=== PATIENT | male | born 2000 | race Hispanic/Latino ===

== ENCOUNTER 2023-01-31 03:09 | Inpatient (IN) | payer MEDICAID, OTHER ==
[~2023-01-31] VITALS: Ht 162.6 cm; Wt 65.7 kg
[2023-01-31 04:43] LABS: BASOPHILS # (AUTO) 0.04 K/uL (0.00-0.20); BASOPHILS % (AUTO) 0.4 % (0.0-5.0); EOSINOPHILS # (AUTO) 0.31 K/uL (0.00-0.70); EOSINOPHILS % (AUTO) 2.8 % (0.0-8.0); HEMATOCRIT 43.4 % (42-54); IMMATURE GRANULOCYTE ABSOLUTE 0.04 K/uL (0-1); LYMPHOCYTES # (AUTO) 2.8 K/uL (1.0-4.8); LYMPHOCYTES % (AUTO) 24.7 % (21.0-51.0); MEAN CORPUSCULAR HEMOGLOBIN 30.1 pg (27.0-33.0); MEAN CORPUSCULAR HGB CONC 33.2 g/dL (32.0-36.0); MEAN CORPUSCULAR VOLUME 90.6 fL (79-99); MONOCYTES # (AUTO) 1.1 K/uL (0.1-1.0); MONOCYTES % (AUTO) 9.4 % (3.0-13.0); NEUTROPHILS % (AUTO) 62.3 % (40.0-77.0); PLATELET COUNT (AUTO) 260 K/uL (130-400); RED BLOOD CELL COUNT(AUTO) 4.79 MIL/uL (4.50-6.20); RED CELL DISTRIBUTION WIDTH 12.6 % (11.0-15.5); WHITE BLOOD COUNT (AUTO) 11.3 K/uL (4.8-10.8)
[2023-01-31 04:44] LABS: APPEARANCE,URINE CLEAR (CLEAR); BILIRUBIN,URINE NEGATIVE (NEGATIVE); COLOR,URINE LIGHT-YELLOW (YELLOW); GLUCOSE, URINE (UA) NEGATIVE (NEGATIVE); KETONES,URINE NEGATIVE (NEGATIVE); LEUKOCYTE ESTERASE ,URINE NEGATIVE Leu/uL (NEGATIVE); NITRATE,URINE NEGATIVE (NEGATIVE); OCCULT BLOOD,URINE NEGATIVE (NEGATIVE); PROTEIN,URINE NEGATIVE (NEGATIVE); UROBILINOGEN,URINE 0.2 mg/dL (0.2-1.0)
[2023-01-31 04:48] LABS: ADD UA MICROSCOPIC NO
[2023-01-31 05:00] LABS: INR < 0.93 (0.85-1.15); PROTHROMBIN TIME 9.9 SEC (9.6-11.6)
[2023-01-31] MEDS ORDERED: TETANUS/DIPHTHERIA TOXOID [ADULT] 0.5 ML VIAL IM ONE (05:00)
[2023-01-31] MEDS ORDERED: ZOSYN 3.375GM +NS 50ML IV ONE (05:00)
[2023-01-31] MEDS ORDERED: DIPH,PERTUSS(ACELL),TET VAC/PF 0.5 ML VIAL IM ONE (05:00)
[2023-01-31] MEDS ORDERED: MORPHINE 2 MG SYG IVP ONE (05:00)
[2023-01-31] MEDS ORDERED: VANCOMYCIN KIT 1 GM/250 ML IV.KIT IV ONE (05:00)
[2023-01-31 05:05] LABS: CREATININE 1.1 mg/dL (0.5-1.5); POTASSIUM 3.7 mmol/L (3.5-5.1)
[2023-01-31 05:07] LABS: ALBUMIN 3.6 g/dL (3.5-5.0); BILIRUBIN,TOTAL 0.1 mg/dL (0.2-1.0); TOTAL PROTEIN, SERUM 7.6 g/dL (6.0-8.3)
[2023-01-31] MEDS ORDERED: IOHEXOL-350 75 ML VIAL IV ONE (05:27)
[2023-01-31] MEDS: 0.9%NACL 1000ML 1,000 ML IV SCH ×2 (08:13→12:13)
[2023-01-31] MEDS ORDERED: MORPHINE 2 MG SYG IVP PRN (08:30)
[2023-01-31] MEDS ORDERED: ACETAMINOPHEN 500 MG TABLET PO PRN (08:30)
[2023-01-31] MEDS: FAMOTIDINE 20MG VIAL IV SCH ×2 (09:13→20:52)
[2023-01-31 09:39] LABS: AMPHET/METH SCREEN,URINE NEGATIVE (NEGATIVE); BARBITURATE SCREEN, URINE NEGATIVE (NEGATIVE); BENZODIAZEPINES SCREEN,URINE NEGATIVE (NEGATIVE); CANNABINOID SCREEN,URINE POSITIVE (NEGATIVE); COCAINE SCREEN,URINE NEGATIVE (NEGATIVE); OPIATE SCREEN,URINE NEGATIVE (NEGATIVE); PHENCYCLIDINE SCREEN,URINE NEGATIVE (NEGATIVE)
[2023-01-31 10:08] LABS: HEMOGLOBIN A1C 5.6 % (4.0-6.0)
[2023-01-31] MEDS: LIDOCAINE HCL 1% 20 ML VIAL INJ SCH (10:30)
[2023-01-31 11:52] VITALS: BP 126/67; PULSE 71; RESP 18
[2023-01-31] MEDS ORDERED: 0.9%NACL 50ML IV SCH (14:00)
[2023-01-31] MEDS: ZOSYN 3.375GM +NS 50ML IVPB SCH ×2 (15:08→22:08)
[2023-01-31 16:00] VITALS: BP 118/74; PULSE 79; RESP 16
[2023-01-31 20:23] VITALS: BP 116/70; PULSE 69; RESP 20
[2023-01-31] MEDS: KETOROLAC 15MG/ML VIAL (15MG/ML) IV PRN (22:00)
[2023-01-31 23:57] VITALS: BP 115/71; PULSE 79; RESP 18
[2023-02-01] VITALS (8 sets, daily range): BP systolic 116–127; BP diastolic 65–87; PULSE 72–80; RESP 16–18; O2SAT 99
[2023-02-01] MEDS: 0.9%NACL 1000ML 1,000 ML IV SCH ×2 (03:19→14:30)
[2023-02-01] MEDS: ZOSYN 3.375GM +NS 50ML IVPB SCH ×3 (05:06→22:14)
[2023-02-01 07:51] LABS: BASOPHILS # (AUTO) 0.03 K/uL (0.00-0.20); BASOPHILS % (AUTO) 0.4 % (0.0-5.0); EOSINOPHILS # (AUTO) 0.24 K/uL (0.00-0.70); EOSINOPHILS % (AUTO) 3.4 % (0.0-8.0); HEMATOCRIT 44.1 % (42-54); IMMATURE GRANULOCYTE ABSOLUTE 0.02 K/uL (0-1); LYMPHOCYTES # (AUTO) 1.9 K/uL (1.0-4.8); LYMPHOCYTES % (AUTO) 26.4 % (21.0-51.0); MEAN CORPUSCULAR HEMOGLOBIN 30.1 pg (27.0-33.0); MEAN CORPUSCULAR HGB CONC 33.6 g/dL (32.0-36.0); MEAN CORPUSCULAR VOLUME 89.8 fL (79-99); MONOCYTES # (AUTO) 0.7 K/uL (0.1-1.0); MONOCYTES % (AUTO) 9.5 % (3.0-13.0); NEUTROPHILS # (AUTO) 4.3 K/uL (1.8-7.7); PLATELET COUNT (AUTO) 251 K/uL (130-400); RED BLOOD CELL COUNT(AUTO) 4.91 MIL/uL (4.50-6.20); RED CELL DISTRIBUTION WIDTH 12.4 % (11.0-15.5); WHITE BLOOD COUNT (AUTO) 7.2 K/uL (4.8-10.8)
[2023-02-01 08:07] LABS: CREATININE 1.1 mg/dL (0.5-1.5); POTASSIUM 3.5 mmol/L (3.5-5.1)
[2023-02-01] MEDS: FAMOTIDINE 20MG VIAL IV SCH ×2 (08:31→20:03)
[2023-02-01] MEDS: LIDOCAINE HCL 1% 20 ML VIAL INJ SCH (10:04)
[2023-02-01] MEDS: KETOROLAC 15MG/ML VIAL (15MG/ML) IV PRN (12:32)
[2023-02-01] MEDS ORDERED: ONDANSETRON 4MG INJ IVP PRN (23:00)
[2023-02-02 03:00] VITALS: BP 108/55; PULSE 62; RESP 16
[2023-02-02] MEDS: 0.9%NACL 1000ML 1,000 ML IV SCH ×3 (05:27→20:04)
[2023-02-02] MEDS: ZOSYN 3.375GM +NS 50ML IVPB SCH ×3 (05:27→20:06)
[2023-02-02 08:00] VITALS: BP 125/75; PULSE 75; RESP 16; O2SAT 99
[2023-02-02] MEDS: FAMOTIDINE 20MG VIAL IV SCH ×2 (08:57→20:04)
[2023-02-02 17:39] VITALS: BP 108/75; PULSE 70; RESP 16
[2023-02-02 20:00] VITALS: BP 123/63; PULSE 83; RESP 18; O2SAT 99
[2023-02-03] VITALS: BP 124/72; PULSE 90; RESP 18
[2023-02-03 04:00] VITALS: BP 128/62; PULSE 92; RESP 18
[2023-02-03] MEDS: ZOSYN 3.375GM +NS 50ML IVPB SCH (04:01)
[2023-02-03] MEDS: 0.9%NACL 1000ML 1,000 ML IV SCH (04:05)
[2023-02-03] MEDS ORDERED: ACET-2079 PO (06:52)
[2023-02-03 08:04] VITALS: BP 119/68; PULSE 65; RESP 19
[2023-02-03] MEDS: FAMOTIDINE 20MG VIAL IV SCH (09:21)
[2023-02-03 10:18] VITALS: O2SAT 98
[2023-02-03 11:08] VITALS: BP 125/74; PULSE 74; RESP 18
[2023-02-03] MEDS ORDERED: ONDANSETRON 4MG TABLET PO PRN (16:00)
[2023-02-03] MEDS ORDERED: FAMOTIDINE 20MG TAB PO SCH (21:00)
== END 2023-02-03 17:03 | disposition home or self-care (01) | DRG 603 ==
LOC: EDH 03:09 → EDHIP 03:10 → 3CH 11:25
PROVIDERS: ADMIT Internal Medicine; ATTEND Internal Medicine
PROC: 0J9B0ZZ Drainage of Perineum Subcutaneous Tissue and Fascia, Open Approach (ICD-10-PCS; principal; 2023-02-01)
DX: L02.215 Cutaneous abscess of perineum (principal); K61.2 Anorectal abscess; K62.5 Hemorrhage of anus and rectum; D72.829 Elevated white blood cell count, unspecified; F12.10 Cannabis abuse, uncomplicated
CPT/HCPCS: 36415; 74177; 80048; 80053; 80305; 81003; 82270; 82550; 83036; 83605; 84443; 84484; 85025; 85610; 85730; 87040; 87046; 87070; 87076; 90471; 90714; 93005; 96374; G0378; J1885; J2270; J2405; J2543; J3370; J3490; Q9967